=== PATIENT | female | born 1945 | race Caucasian/White ===

== ENCOUNTER → 2016-11-02 | Outpatient (CLI) | payer OTHER ==
[~2016-11-02] MED LIST: AMLO5TAB2 PO; ASPI81TA2 PO; DOCU-27 PO; LISI-334 PO; OMEG1CAP6 PO; PSYL0.5215 PO; TRAZ50TA15 PO
--- NOTE | 2016-11-02 16:29 | RAD ---
DATE: 11/02/2016 EXAM: DIGITAL SCREEN BILAT W/CAD HISTORY: Screening study. COMPARISON: 10/30/2015 This study was interpreted with the benefit of Computerized Aided Detection (CAD). FINDINGS: Digital MLO and CC mammograms of both breasts were obtained. Comparison study is dated 10/30/2015 The breast parenchyma is heterogeneously dense which can obscure a lesion on mammography (breast density code C). No spiculated mass is seen. No malignant appearing calcification or area of architectural distortion is noted. Since the previous examination there is been no significant interval change. IMPRESSION: BI-RADS Category 1, negative. There is no mammographic evidence of malignancy. Routine yearly screening mammography is recommended for follow-up. BI-RADS CATEGORY: 1 NEGATIVE RECOMMENDED FOLLOW-UP: 12M 12 MONTH FOLLOW-UP PQRS compliance statement: Patient information was entered into a reminder system with a target due date 11/02/2017 for the next mammogram. Mammography is a sensitive method for finding small breast cancers, but it does not detect them all and is not a substitute for careful clinical examination. A negative mammogram does not negate a clinically suspicious finding and should not result in delay in biopsying a clinically suspicious abnormality. "Our facility is accredited by the [employer] Mammography Program."
== END | disposition home or self-care (01) ==
LOC: MAMMO 10:10
PROVIDERS: ATTEND Internal Medicine
DX: Z12.31 Encounter for screening mammogram for malignant neoplasm of breast (principal)
CPT/HCPCS: G0202; 77067

== ENCOUNTER 2017-07-06 16:22 | Observation (INO) | payer OTHER ==
[~2017-07-06] VITALS: Ht 157.5 cm; Wt 51.9 kg
[~2017-07-06 16:22] MED LIST changes: +ASPI-630 PO; -ASPI81TA2 PO; +DOCU-109 PO; -DOCU-27 PO
[2017-07-06 17:00] VITALS: BP 173/70
[2017-07-06] MEDS ORDERED: amLODIPine BESYLATE 5 MG TABLET PO ONE (17:15)
[2017-07-06] MEDS ORDERED: LISINOPRIL 40 MG TABLET. PO ONE (17:15)
[2017-07-06] MEDS ORDERED: ASPIRIN 325 MG TABLET PO ONE (17:15)
[2017-07-06] MEDS ORDERED: MULT-460 PO (17:48)
[2017-07-06] MEDS ORDERED: ESTR1TAB15 PO (17:48)
[2017-07-06] MEDS ORDERED: TRAZ50TA15 PO (17:48)
[2017-07-06] MEDS ORDERED: LISI40TA PO (17:54)
[2017-07-06] MEDS ORDERED: MAGNESIUM HYDROXIDE 2,400 MG/30 ML ORAL.SUSP. PO PRN (18:00)
[2017-07-06] MEDS ORDERED: NITROGLYCERIN SUBLINGUAL 0.4 MG BOTTLE OF 25. SL PRN (18:00)
[2017-07-06] MEDS ORDERED: ACETAMINOPHEN 325 MG TABLET. PO PRN ×2 (18:00→18:30)
--- NOTE | 2017-07-06 18:00 | EKG ---
[facility] [address] [place] [address] Test Date: 2017-07-06 Test Time: 17:56:14 Pat Name: PETER GARCIA Department: Room: [facility] Gender: F Family Consumer Scientist: : 1945 Requested By: MAMIE SZYMANSKI Order Number: [id number] Reading MD: Steve Maza MD Measurements Intervals Hubbard Rate: 66 P: 64 CT: 150 QRS: 60 QRSD: 80 T: 56 QT: 390 QTc: 411 Interpretive Statements SINUS RHYTHM Electronically Signed On 07-12-2017 16:42:58 SOFTWARE CLIENT ARCHITECT by Steve Maza MD
[2017-07-06 18:14] LABS: BASO # 0.1 x10^3/uL (0.0-0.2); BASO % 1 % (0-3); EOS % 0 % (0-3); HEMATOCRIT 39.3 % (36.0-47.0); HEMOGLOBIN 13.5 g/dL (12.0-15.5); LYMPH % 26 % (24-48); MEAN CORPUSCULAR HEMOGLOBIN 32 pg (25-35); MEAN CORPUSCULAR HGB CONC 34 g/dL (31-37); MEAN CORPUSCULAR VOLUME 93 fL (79-100); MONO % 10 % (0-9); NEUT % 63 % (31-73); PLATELET COUNT 251 x10^3/uL (140-400); RED BLOOD COUNT 4.22 x10^6/uL (3.50-5.40); RED CELL DISTRIBUTION WIDTH 13.2 % (11.5-14.5); WHITE BLOOD COUNT 7.7 x10^3/uL (4.0-11.0)
[2017-07-06 18:48] LABS: ALBUMIN 3.9 g/dL (3.4-5.0); ALBUMIN/GLOBULIN RATIO 1.1 (1.0-1.7); CALCIUM 9.3 mg/dL (8.5-10.1); CREATININE 0.7 mg/dL (0.6-1.0); GFR 82.5; POTASSIUM 3.9 mmol/L (3.5-5.1); TOTAL BILIRUBIN 0.2 mg/dL (0.2-1.0); TOTAL PROTEIN 7.3 g/dL (6.4-8.2)
[2017-07-06 19:00] VITALS: BP 130/60
[2017-07-06] MEDS: DOCUSATE SODIUM 100 MG CAPSULE. PO SCH (20:59)
[2017-07-06] MEDS ORDERED: ESTRADIOL 1 MG TABLET. PO SCH (21:00)
[2017-07-06] MEDS ORDERED: traZODone 50 MG TABLET. PO SCH (21:00)
[2017-07-06 23:00] VITALS: BP 121/55
[2017-07-07 03:00] VITALS: BP 108/53
[2017-07-07 05:48] LABS: CHOLESTEROL/HDL RATIO 2.6
[2017-07-07 07:00] VITALS: BP 110/69
--- NOTE | 2017-07-07 07:36 | RAD ---
EXAM: Chest 2 views. HISTORY: Chest pain. COMPARISON: None. FINDINGS: Frontal and lateral views of the chest are obtained. There are no confluent infiltrates. A calcified granuloma projects in the left infrahilar region. There is no pneumothorax or pleural effusion. The heart is not enlarged. IMPRESSION: 1. No confluent infiltrates.
[2017-07-07] MEDS ORDERED: ASPIRIN ENTERIC COATED 325 MG TABLET.DR. PO SCH (08:00)
[2017-07-07] MEDS ORDERED: amLODIPine BESYLATE 5 MG TABLET PO SCH (09:00)
[2017-07-07] MEDS ORDERED: MULTIVITAMIN with MINERAL TABLET. PO SCH (09:00)
[2017-07-07] MEDS ORDERED: LISINOPRIL 40 MG TABLET. PO SCH (09:00)
--- NOTE | 2017-07-07 09:37 | PDOC2 ---
CARDIAC CONSULT DATE OF CONSULT Date of Consult DATE: 07/07/17 TIME: 09:34 REASON FOR CONSULT Reason for Consult: Chest pain REFERRING PHYSICIAN Referring Physician: Dr. Bridges SOURCE Source: Chart review, Patient HISTORY OF PRESENT ILLNESS HISTORY OF PRESENT ILLNESS This is a 72 yo female who was a direct admit for complaints of chest pain. Patient reports that she has had a "hollow sensation" in her chest intermittently for the last 3 weeks. No precipitating or exacerbating factors. Generally resolved without intervention. Not associated with palpitations, SOA , dizziness, diaphoresis, or nausea/vomiting. No previous h/o CAD or previous cardiac workup. PAST MEDICAL HISTORY Cardiovascular: HTN Pulmonary: No pertinent hx GI: No pertinent hx Heme/Onc: No pertinent hx Hepatobiliary: No pertinent hx Psych: No pertinent hx Musculoskeletal: Osteoarthritis Rheumatologic: No pertinent hx Infectious disease: No pertinent hx ENT: No pertinent hx Renal/: No pertinent hx Endocrine: No pertinent hx Dermatology: No pertinent hx PAST SURGICAL HISTORY Past Surgical History: Hysterectomy FAMILY HISTORY Family History: Hypertension SOCIAL HISTORY Smoke: No ALCOHOL: none Drugs: None Lives: with Family CURRENT MEDICATIONS CURRENT MEDICATIONS Current Medications Medications (Trade) Dose Ordered Sig/Terri Route PRN Reason Start Time Stop Time Status Last Admin Dose Admin Lisinopril (Prinivil) 40 mg 1X ONCE PO 07/06/17 17:15 07/06/17 17:23 DC 07/06/17 18:21 Amlodipine Besylate (Norvasc) 5 mg 1X ONCE PO 07/06/17 17:15 07/06/17 17:23 DC 07/06/17 18:21 Aspirin (Ivett Aspirin) 325 mg 1X ONCE PO 07/06/17 17:15 07/06/17 17:23 DC 07/06/17 18:19 Trazodone HCl (Desyrel) 25 mg QHS PO 07/06/17 21:00 07/06/17 20:58 Estradiol (Estrace) 1 mg HS PO 07/06/17 21:00 07/06/17 20:58 ALLERGIES ALLERGIES: Coded Allergies: No Known Drug Allergies (Unverified , 09/24/14) ROS Review of System 14 point ROS conducted with pertinent positives noted above in HPI. PHYSICAL EXAM General: Alert, Oriented X3, Cooperative, No acute distress HEENT: Atraumatic, Mucous membr. moist/pink Lungs: Clear to auscultation, Normal air movement Heart: Regular rate, Normal S1, Normal S2, Other (central chest slightly tender upon palpation) Abdomen: Soft, No tenderness Extremities: No edema, Normal pulses Skin: No breakdown, No significant lesion Neuro: Normal speech, Sensation intact Psych/Mental Status: Mental status NL, Mood NL MUSCULOSKELETAL: Osteoarthritic changes both hands VITALS VITALS Vital Signs Date Time Temp Pulse Resp B/P (MAP) Pulse Ox O2 Delivery O2 Flow Rate FiO2 07/07/17 08:30 Room Air 07/07/17 07:00 96.6 77 20 110/69 (83) 98 96.6 LABS Lab: Laboratory Tests Test 07/06/17 18:00 07/07/17 03:37 White Blood Count 7.7 x10^3/uL (4.0-11.0) Red Blood Count 4.22 x10^6/uL (3.50-5.40) Hemoglobin 13.5 g/dL (12.0-15.5) Hematocrit 39.3 % (36.0-47.0) Mean Corpuscular Volume 93 fL (79-100) Mean Corpuscular Hemoglobin 32 pg (25-35) Mean Corpuscular Hemoglobin Concent 34 g/dL (31-37) Red Cell Distribution Width 13.2 % (11.5-14.5) Platelet Count 251 x10^3/uL (140-400) Neutrophils (%) (Auto) 63 % (31-73) Lymphocytes (%) (Auto) 26 % (24-48) Monocytes (%) (Auto) 10 % (0-9) Eosinophils (%) (Auto) 0 % (0-3) Basophils (%) (Auto) 1 % (0-3) Neutrophils # (Auto) 4.8 x10^3uL (1.8-7.7) Lymphocytes # (Auto) 2.0 x10^3/uL (1.0-4.8) Monocytes # (Auto) 0.8 x10^3/uL (0.0-1.1) Eosinophils # (Auto) 0.0 x10^3/uL (0.0-0.7) Basophils # (Auto) 0.1 x10^3/uL (0.0-0.2) Sodium Level 137 mmol/L (136-145) Potassium Level 3.9 mmol/L (3.5-5.1) Chloride Level 99 mmol/L (98-107) Carbon Dioxide Level 29 mmol/L (21-32) Anion Gap 9 (6-14) Blood Urea Nitrogen 19 mg/dL (7-20) Creatinine 0.7 mg/dL (0.6-1.0) Estimated GFR (Cockcroft-Gault) 82.5 BUN/Creatinine Ratio 27 (6-20) Glucose Level 104 mg/dL (70-99) Calcium Level 9.3 mg/dL (8.5-10.1) Total Bilirubin 0.2 mg/dL (0.2-1.0) Aspartate Amino Transf (AST/SGOT) 22 U/L (15-37) Alanine Aminotransferase (ALT/SGPT) 24 U/L (14-59) Alkaline Phosphatase 71 U/L (46-116) Troponin I Quantitative < 0.017 ng/mL (0.000-0.055) < 0.017 ng/mL (0.000-0.055) Total Protein 7.3 g/dL (6.4-8.2) Albumin 3.9 g/dL (3.4-5.0) Albumin/Globulin Ratio 1.1 (1.0-1.7) Triglycerides Level 119 mg/dL (0-150) Cholesterol Level 207 mg/dL (0-200) LDL Cholesterol, Calculated 102 mg/dL (0-100) VLDL Cholesterol, Calculated 24 mg/dL (0-40) Non-HDL Cholesterol Calculated 126 mg/dL (0-129) HDL Cholesterol 81 mg/dL (40-60) Cholesterol/HDL Ratio 2.6 ASSESSMENT/PLAN ASSESSMENT/PLAN 1. Chest pain; atypical. Troponin negative x 2. EKG shows SR with t-wave inversion of V1 2. Hypertension; Elevated upon arrival as patient had not taken her routine meds. Now well- controlled with resumption 3. Dyslipidemia; LDL 102 Recommendations Continue present antiHTN therapy Echo pending to assess LV function/ presence of WMA Encouraged diet/lifestyle modification with outpatient followup of mildly elevated lipids. With symptomatology and risk factors, will proceed with MPI to r/o ischemia. If above are WNL, may discharge from a CV perspective Problems: SEAN DESHPANDE APRN Jul 07, 2017 09:37
--- NOTE | 2017-07-07 10:12 | PDOC ---
Provider Note Provider Note history and physical dictated # [id number] MAMIE SZYMANSKI MD Jul 07, 2017 10:12
[2017-07-07 11:00] VITALS: BP 123/56
--- NOTE | 2017-07-07 11:01 | CARD ---
APPROVED REPORT EXAM: Two-dimensional and M-mode echocardiogram with Doppler and color Doppler. INDICATION Chest Pain 2D DIMENSIONS Left Atrium(2D)2.6 (1.6-4.0cm)IVSd0.9 (0.7-1.1cm) Aortic Root(2D)2.1 (2.0-3.7cm)LVDd3.4 (3.9-5.9cm) LVOT Diameter2.0 (1.8-2.4cm)PWd0.9 (0.7-1.1cm) LVDs2.4 (2.5-4.0cm)FS (%) 28.5 % SV25.7 mlLVEF(%)56.2 (>50%) Aortic Valve AoV Peak Kt.162.0cm/sAoV VTI35.3cm AO Peak GR.10.5mmHgLVOT Peak Kt.118.0cm/s AO Mean GR.5mmHgAVA (VMAX)2.23cm2 TREY (VTI)2.20cm2 Mitral Valve MV E Meuvvdbu46.9cm/sMV DECEL OAWQ535ft MV A Hlopdanb624.1cm/sE/A Ratio0.8 Tricuspid Valve TR P. Bxmfgqpq040qr/sRAP VXDTTCPU7ngAv TR Peak Gr.93hlJwPMBO86kxGd LEFT VENTRICLE The left ventricle is normal size. There is normal left ventricular wall thickness. Left ventricle sy stolic function is normal. The Ejection Fraction is 55-60%. There is normal LV segmental wall motion. Transmitral Doppler flow pattern is normal for age. Transmitral Doppler flow pattern is Grade I-abno rmal relaxation pattern. RIGHT VENTRICLE The right ventricle is normal size. The right ventricular systolic function is normal. ATRIA The left atrium size is normal. The right atrium size is normal. The interatrial septum is intact wit h no evidence for an atrial septal defect or patent foramen ovale as noted on 2-D or Doppler imaging. AORTIC VALVE The aortic valve is thickened but opens well. Doppler and Color Flow revealed no significant aortic r egurgitation. There is no significant aortic valvular stenosis. MITRAL VALVE The mitral valve is normal in structure. There is no evidence of mitral valve prolapse. There is no m itral valve stenosis. Doppler and Color-flow revealed trace to mild mitral regurgitation. TRICUSPID VALVE The tricuspid valve is normal in structure. Doppler and Color Flow revealed mild tricuspid regurgitat ion. There is mild pulmonary hypertension. The PA pressure was estimated at 33 mmHg. There is no tric uspid valve prolapse or vegetation. There is no tricuspid valve stenosis. PULMONIC VALVE The pulmonary valve is normal in structure and function. Doppler and Color Flow revealed no pulmonic valvular regurgitation. There is no pulmonic valvular stenosis. GREAT VESSELS The aortic root is normal in size. The ascending aorta is normal in size. The IVC is normal in size a nd collapses >50% with inspiration. PERICARDIAL EFFUSION There is no pleural effusion. There is no evidence of significant pericardial effusion. Critical Notification Critical Value: No <Conclusion> Left ventricle systolic function is normal. The Ejection Fraction is 55-60%. There is normal LV segmental wall motion. Transmitral Doppler flow pattern is Grade I-abnormal relaxation pattern. Trace to mild mitral regurgitation. Mild tricuspid regurgitation. The PA pressure was estimated at 33 mmHg. There is no evidence of significant pericardial effusion.
[2017-07-07] MEDS ORDERED: REGADENOSON 0.4 MG/5 ML DISP.SYRIN. IV ONE (11:30)
--- NOTE | 2017-07-07 11:31 | HP ---
ADMIT DATE: 07/06/2017 LOCATION: She is in room 510. HISTORY OF PRESENT ILLNESS: The patient is a 72-year-old white female with a history of hypertension and notes a 2-week history of chest discomfort described as a hollow sensation without any radiation, shortness of breath, nausea and vomiting. The pain can last anywhere from minutes to hours. She was seen in the office on 07/06/2017. On July 05, she had a 4 hour episode of chest pressure and chest discomfort. She also had an episode earlier yesterday morning. The patient had an EKG in the office, which showed no acute change, but she was subsequently admitted to the hospital for further evaluation of her chest pain. She has a history of hypertension. She did not have hyperlipidemia and she is a nonsmoker. Her mother had a myocardial infarction at age 89. Since admission, she had a transient episode lasting seconds with chest discomfort earlier on admission, but not since that time and is currently pain free. ALLERGIES: None. MEDICATIONS: Prior to admission include amlodipine 5 mg every day, multiple vitamin every day, Colace 100 mg b.i.d., estradiol 1 mg every day, lisinopril 40 mg every day, trazodone 25 mg at bedtime. She takes doxycycline as needed for rosacea. PAST MEDICAL HISTORY: Significant for hypertension. She has had rosacea, essential tremor. She had a right ovarian cystectomy, uterine polyp removal, lumbar laminectomy, colposcopy, bilateral tubal ligation, hysterectomy with bilateral salpingo-oophorectomy, tonsillectomy and colonoscopy was done in 2010. SOCIAL HISTORY: She does not smoke cigarettes. She does not drink any significant amount of alcohol. She is , retired. FAMILY HISTORY: Father had a myocardial infarction and hypertension. Father also had myasthenia gravis. Mother had a myocardial infarction and hypertension. REVIEW OF SYSTEMS: GENERAL: There has been no fever, chills or sweats in the last 3 days. CARDIOVASCULAR: She ____ chest pain. PULMONARY: No cough or shortness of breath. GASTROINTESTINAL: No constipation. SKIN: No rashes. NEUROLOGIC: No focal weakness. ENDOCRINE: No diabetes mellitus. Rest of systems reviewed are negative except as stated in history of present illness. PHYSICAL EXAMINATION: VITAL SIGNS: Temperature is 96.6 degrees, apical pulse 77, respiratory rate 20, blood pressure 110/69, oxygen saturation was 98% on room air. HEENT: Eyes: Gaze is conjugate. Mouth: Tongue is midline. NECK: Shows no cervical lymphadenopathy or thyroid enlargement. HEART: Reveals an S1, S2. There is no S3 or murmur. LUNGS: Clear. ABDOMEN: Soft with no hepatosplenomegaly, masses or tenderness. EXTREMITIES: Lower extremities without edema. SKIN: No rashes. NEUROLOGIC: Coherent with no focal weakness of the extremities or facial asymmetry. LABORATORY DATA: Review of her laboratory, her white count is 7.7, hemoglobin 13.5, platelet count 251,000, 63 polys and 26 lymphocytes. Sodium 137, potassium 3.9, chloride 99, total CO2 of 29, BUN 19, creatinine 0.7, blood sugar 104. Liver function tests normal. Troponin level negative x 3. Cholesterol 207, LDL cholesterol 102, HDL cholesterol was 81 and triglycerides were 119. She had a chest x-ray done, which showed no acute abnormality. She had a calcified granuloma in the left infrahilar region. She had an electrocardiogram that showed normal sinus rhythm with left atrial abnormality. ASSESSMENT: 1. Chest pain. She does have risk factors with hypertension. 2. Hypertension. Her blood pressure was high in the office, but she apparently missed a dose of amlodipine, lisinopril earlier yesterday morning, but her blood pressures that evening had been on the low side of normal. PLAN: At this time is to proceed with an echocardiogram and a stress test. I already spoke with the Cardiology nurse practitioner. We will decrease the lisinopril to 20 mg every day. Continue the amlodipine. She had aspirin ordered yesterday and this morning. We will continue with her other home medications. If she passes her stress test today, she will be able to be dismissed to home later today also. MAMIE SZYMANSKI MD DR: MARYBETH/lori JOB#: [id number] / [id number]
--- NOTE | 2017-07-07 14:03 | RAD ---
APPROVED REPORT Test Type: Pharmacological Stress Nurse/Tech: diane george Test Indications: CHEST PAIN Cardiac History: HTN, SEE EHR Medications: SEE EHR Medical History: SEE EHR Resting ECG: SR Resting Heart Rate: 58 bpm Resting Blood Pressure: 115/57mmHg Pretest Chest Pain: No chest pain Nurse/Tech Notes LUNG SOUNDS CLEAR, S1S2 WNL. Consent: The procedure was explained to the patient in lay terms. Informed consent was witnessed. Kareem eout was entered into [employer]. History and Stress Test performed by ZOILA Siddiqui Pharm. Details Pharmacologic stress testing was performed using 0.4mg per 5ml of regadenoson given intravenously ove r 7-10 seconds. Stress Symptoms HEADACHE, FACIAL FLUSHING, NAUSEA. POST EXERCISE Reason for Termination: Infusion complete Max HR: 103 bpm Max Blood Pressure: 125/56mmHg Chest Pain: No. Arrhythmia: No. INTERPRETATION Stress EKG Conclusion: The baseline EKG shows a sinus rhythm with mild nonspecific ST segment changes . Two minute episode of a bundle branch block with exertion. The peak stress EKG shows no significant changes from baseline. No EKG evidence of stress-induced ischemia. Imaging Protocol IMAGE PROTOCOL: Rest Tc-99m/stress Tc-99m 1 day Rest: Stress: Viability: Radiopharm.Tc99m DgyeyrzjvVn66c Sestamibi Rvjt45vDq 33mCi Duration 15min. 10min. Img Date 07/07/2017 07/07/2017 Inj-Img Ebde34vur. 60min. Rest Admin Site:IV - Left AntecubitalAdministrator:RT Ana (R)(N) Stress Admin Site: IV - Left AntecubitalAdministrator: ZOILA Siddiqui STRESS DATA End Diast. Vol.43.0mlAv. Heart Rate63.0bpm End Syst. Vol.6.0mlCO Index BSA0.0L/min Myocardial Mass89.0gEject. Ubtjypwf78.0% Stress Rates Pk. Fill Rate3.66EDV/secLVtime Pk. Fill 273.86msec Pk. Empty Rate4.74ESV/secLVtime Pk. Mjxvh850.30msec 09/01 Pk. Fill1.31EDV/sec Stress Scores Regional WT0.00Summed WT1.00 Regional WM0.00Summed WM0.00 LV Perfusion The stress scans showed no significant defects. The rest scans showed no significant defects. Nuclear imaging shows no reversible ischemia or infarct. Wall Motion Normal left ventricular systolic function with an ejection fraction of greater than 70%. LV Perf. Quant 17 Seg. SSS0.00 17 Seg. SRS6.00 17 Seg. SDS0.00 Stress Defect Extent (% LAD)0.00Rest Defect Extent (% LAD)5.00Rev. Defect Extent (% LAD)0.00 Stress Defect Extent (% LCX) 7.50Rest Defect Extent (% LCX)10.00Rev. Defect Extent (% LCX)2.50 Stress Defect Extent (% RCA)0.00Rest Defect Extent (% RCA)5.60Rev. Defect Extent (% RCA)0.00 Stress Defect Extent (% JOSE)1.70Rest Defect Extent (% JOSE)9.10Rev. Defect Extent (% JOSE)0.70 Conclusion 1. No EKG evidence of stressed induced ischemia. 2. Brief episode of a bundle branch block with infusion that spontaneously resumed sinus rhythm. 3. Nuclear imaging shows no reversible ischemia or infarct. 4. Normal left ventricular systolic function with an ejection fraction of greater than 70%. 5. Low risk Lexiscan nuclear stress test.
[2017-07-07 14:45] VITALS: BP 107/53
[2017-07-07] MEDS: DOCUSATE SODIUM 100 MG CAPSULE. PO SCH (14:45)
[2017-07-07] MEDS ORDERED: ASPI325T11 PO (15:55)
[2017-07-07] MEDS ORDERED: LISI-334 PO (15:55)
[2017-07-08] MEDS ORDERED: LISINOPRIL 20 MG TABLET PO SCH (09:00)
--- NOTE | 2017-07-08 11:52 | PDOC ---
Provider Note Provider Note discharge summary dictated # [id number] MAMIE SZYMANSKI MD Jul 08, 2017 11:52
--- NOTE | 2017-07-08 17:27 | DS ---
DATE OF DISCHARGE: 07/07/2017 CONSULTANTS: Dr. Sands. FINAL DIAGNOSES: 1. Chest pain, possibly secondary to esophageal spasms. 2. Hypertension. HOSPITAL COURSE: The patient is a 72-year-old white female with a history of hypertension and a 2-week history of chest discomfort described as a hallow sensation without any radiation, shortness of breath, nausea or vomiting. It may last anywhere from minutes to hours. It occurs with rest or exertion. She was seen in the office, an EKG in the office showed no acute change, but was admitted to the hospital for further evaluation of her chest pain. She had 4 hour episode of chest discomfort the day before and had a short episode earlier the day of admission. The patient admitted to the hospital. EKG showed no acute change. Cardiac enzymes were negative. Echocardiogram was normal, seen by Dr. Sands in consultation and she passed her myocardial perfusion imaging stress test. She felt chest pain, most likely from esophageal spasm. Her lisinopril dose was decreased from 40 mg to 20 mg as the blood pressure later in the admission was on the low side of normal. She therefore will be dismissed to home on amlodipine 5 mg every day and lisinopril 20 mg every day and we will continue with a Colace 100 mg b.i.d., multiple vitamin once a day, estradiol 1 mg every day, trazodone 25 mg at bedtime and doxycycline p.r.n. for rosacea and she will make an appointment to see Dr. Bridges in the office next week. MAMIE BRIDGES MD DR: MARYBETH/lori JOB#: [id number] / [id number]
== END 2017-07-07 16:15 | disposition home or self-care (01) ==
LOC: INTOOBSV 16:42 → 5 NORTH 16:42
PROVIDERS: ADMIT Internal Medicine; ATTEND Internal Medicine
DX: R07.89 Other chest pain (principal); I10 Essential (primary) hypertension; L71.9 Rosacea, unspecified; G25.0 Essential tremor
CPT/HCPCS: 36415; 71020; 78452; 80053; 80061; 84484; 85025; 93005; 93017; 93306; A9500; G0378; G0379; J2785; 96374; 96375; 96376